=== PATIENT | male | born 1970 | race African-American/Black ===

== ENCOUNTER 2025-09-02 16:00 | Emergency (ER) | payer OTHER ==
[~2025-09-02] VITALS: Ht 177.8 cm; Wt 95.0 kg
[2025-09-02 16:15] VITALS: TEMP 37.1; O2SAT 100
[2025-09-02 16:53] LABS: BASOPHILS % 0.5 % (0.0-2.0); EOSINOPHILS % 0.8 % (0.0-5.0); HEMATOCRIT. 41.1 % (42.0-52.0); HEMOGLOBIN. 13.6 g/dL (14.0-18.0); LYMPHOCYTES % 28.0 % (20.0-50.0); MEAN PLATELET VOLUME 7.8 fl (7.4-10.4); MONOCYTES % 9.1 % (2.0-8.0); NEUTROPHILS % 61.6 % (40.0-76.0); PLATELET 337 x1000/uL (130-400); RED BLOOD CELL COUNT 4.86 mill/uL (4.7-6.1); RED CELL DISTRIBUTION WIDTH 12.9 % (11.6-14.6)
[2025-09-02 17:23] LABS: CREATININE 1.1 mg/dL (0.6-1.3); UREA NITROGEN BLOOD 10 mg/dL (9-23)
[2025-09-02 17:24] LABS: PROTEIN TOTAL 7.2 g/dL (6.0-8.3)
[2025-09-02 17:25] LABS: ASPARTATE AMINOTRANSFERASE 24 IU/L (<34); BILIRUBIN DIRECT 0.2 mg/dL (<=3.0); BILIRUBIN TOTAL 0.7 mg/dL (0.1-1.0)
[2025-09-02] MEDS: ONDANSETRON 4MG ODT PO ONE (18:25)
[2025-09-02] MEDS: FAMOTIDINE 20MG TABLET PO ONE (18:25)
[2025-09-02] MEDS: MAGNESIUM/ALUMINUM HYDROXIDE/SIMETHICONE 30ML UDC PO ONE (18:25)
[2025-09-02] MEDS: KETOROLAC 30MG/ML VIAL IM ONE (18:26)
[2025-09-02] MEDS ORDERED: MAG-55 MT (19:11)
[2025-09-02] MEDS ORDERED: FAMO-135 MT (19:11)
[2025-09-02 19:27] VITALS: BP 146/99; PULSE 84; RESP 16; O2SAT 97
== END 2025-09-02 19:30 | disposition home or self-care (01) ==
LOC: ER 16:16
DX: R12 Heartburn (principal); Z87.11 Personal history of peptic ulcer disease
CPT/HCPCS: 99285; 76705; 80076; 80048; 83690; 85025; 36415; 96372; J1885; Q0162

== ENCOUNTER 2025-09-05 18:14 | Inpatient (IN) | payer OTHER ==
[~2025-09-05] VITALS: Ht 177.8 cm; Wt 95.3 kg
[~2025-09-05 18:14] MED LIST: FAMO-135 MT; MAG-55 MT
[2025-09-05 18:16] VITALS: O2SAT 100
[2025-09-05 18:38] LABS: BASOPHILS % 0.8 % (0.0-2.0); EOSINOPHILS % 0.1 % (0.0-5.0); HEMATOCRIT. 47.5 % (42.0-52.0); HEMOGLOBIN. 15.9 g/dL (14.0-18.0); LYMPHOCYTES % 23.1 % (20.0-50.0); MEAN PLATELET VOLUME 8.0 fl (7.4-10.4); MONOCYTES % 7.0 % (2.0-8.0); NEUTROPHILS % 69.0 % (40.0-76.0); PLATELET 462 x1000/uL (130-400); RED BLOOD CELL COUNT 5.70 mill/uL (4.7-6.1); RED CELL DISTRIBUTION WIDTH 13.1 % (11.6-14.6)
[2025-09-05 18:53] LABS: CREATININE 1.1 mg/dL (0.6-1.3)
[2025-09-05 18:54] LABS: PROTEIN TOTAL 8.5 g/dL (6.0-8.3); UREA NITROGEN BLOOD 14 mg/dL (9-23)
[2025-09-05 18:55] LABS: ASPARTATE AMINOTRANSFERASE 20 IU/L (<34); TROPONIN I HIGH SENSITIVITY 9 ng/L (3.0-53)
[2025-09-05 18:56] LABS: BILIRUBIN DIRECT 0.3 mg/dL (<=3.0); BILIRUBIN TOTAL 1.0 mg/dL (0.1-1.0)
[2025-09-05 20:01] LABS: GLUCOSE URINE NEGATIVE (NEGATIVE); KETONES URINE 4+ (NEGATIVE); LEUKOCYTE ESTERASE URINE TRACE (NEGATIVE); NITRITE URINE NEGATIVE (NEGATIVE); OCCULT BLOOD URINE NEGATIVE (NEGATIVE); PH URINE 6.0 (4.5-8.0); PROTEIN URINE 1+ (NEGATIVE); SPECIFIC GRAVITY URINE 1.034 (1.005-1.030); UROBILINOGEN URINE 1.0 E.U./dL (0.2-1.0)
[2025-09-05 20:12] LABS: CLARITY URINE SL HAZY (CLEAR); COLOR URINE YELLOW (YELLOW)
[2025-09-05 20:14] LABS: RBC URINE 0-2 /hpf (0-2)
[2025-09-05 20:15] LABS: BACTERIA URINE TRACE; SQUAMOUS EPITHELIAL CELL URINE 1+ /lpf (RARE/1+)
[2025-09-05] MEDS: MAGNESIUM/ALUMINUM HYDROXIDE/SIMETHICONE 30ML UDC PO ONE (20:20)
[2025-09-05] MEDS: FAMOTIDINE 20MG TABLET PO SCH (20:20)
[2025-09-05] MEDS: ACETAMINOPHEN 325MG TABLET PO ONE (20:21)
[2025-09-05] MEDS: PANTOPRAZOLE SODIUM 40 MG/VIAL IV ONE (20:21)
[2025-09-06] MEDS ORDERED: MAGNESIUM/ALUMINUM HYDROXIDE/SIMETHICONE 30ML UDC PO PRN (01:15)
[2025-09-06] MEDS ORDERED: DOCUSATE SODIUM 100MG CAPSULE PO PRN (01:15)
[2025-09-06] MEDS ORDERED: ACETAMINOPHEN 325MG TABLET PO PRN (01:15)
[2025-09-06] MEDS ORDERED: GUAIFENESIN 200MG/10ML SUGAR FREE UDC PO PRN (01:15)
[2025-09-06] MEDS ORDERED: IPRATROPIUM/ALBUTEROL 0.5-3(2.5)MG/3ML NEB HHN PRN (01:15)
[2025-09-06 02:30] VITALS: BP 143/57; PULSE 81; RESP 19; TEMP 36.5292
[2025-09-06] MEDS: SODIUM CHLORIDE 0.9% 1,000 ML IV SCH (03:00)
[2025-09-06] MEDS: ONDANSETRON HCL 4MG/2ML INJ IV PRN (03:38)
[2025-09-06] MEDS: ACETAMINOPHEN 325MG TABLET PO PRN (03:39)
[2025-09-06] MEDS: METRONIDAZOLE 500 MG PREMIX 100 ML IV SCH (06:11)
[2025-09-06] MEDS: CEFTRIAXONE 1GM/50ML 50 ML IV SCH (06:12)
[2025-09-06] MEDS ORDERED: AZITHROMYCIN 500MG/250ML 250 ML IV SCH (07:15)
[2025-09-06 08:00] VITALS: BP 134/95; PULSE 80; RESP 18; TEMP 36.4; O2SAT 100
[2025-09-06] MEDS: AZITHROMYCIN 500 MG TABLET PO SCH (08:54)
[2025-09-06] MEDS: PANTOPRAZOLE SODIUM 40 MG/VIAL IV SCH ×2 (08:54→10:00)
[2025-09-06 08:59] LABS: BASOPHILS % 0.3 % (0.0-2.0); EOSINOPHILS % 0.2 % (0.0-5.0); HEMATOCRIT. 43.5 % (42.0-52.0); HEMOGLOBIN. 14.5 g/dL (14.0-18.0); LYMPHOCYTES % 17.9 % (20.0-50.0); MEAN PLATELET VOLUME 8.3 fl (7.4-10.4); MONOCYTES % 8.2 % (2.0-8.0); NEUTROPHILS % 73.4 % (40.0-76.0); PLATELET 364 x1000/uL (130-400); RED BLOOD CELL COUNT 5.15 mill/uL (4.7-6.1); RED CELL DISTRIBUTION WIDTH 13.0 % (11.6-14.6)
[2025-09-06 09:08] LABS: CREATININE 1.0 mg/dL (0.6-1.3); TRIGLYCERIDE 111 mg/dL (0-150)
[2025-09-06 09:09] LABS: LDL CHOLESTEROL 142 mg/dL (5-100); UREA NITROGEN BLOOD 10 mg/dL (9-23)
[2025-09-06 09:26] LABS: ETHANOL BLOOD < 10 mg/dL (<10)
[2025-09-06 09:28] LABS: PHOSPHORUS 3.5 mg/dL (2.5-4.9)
[2025-09-06] MEDS: DEXT 5%/LACTATED RINGERS 1,000 ML IV ONE (09:45)
[2025-09-06] MEDS ORDERED: CEFTRIAXONE 2GM/50ML 50 ML IV SCH (11:00)
[2025-09-06] MEDS: POTASSIUM CHLORIDE 20MEQ TABLET SR PO NR (11:10)
[2025-09-06] MEDS: KCL 20MEQ/100ML PREMIX 100 ML IV SCH (11:12)
[2025-09-06 12:00] VITALS: BP 128/75; PULSE 78; RESP 18; TEMP 35.8; O2SAT 98
[2025-09-06] MEDS: CEFTRIAXONE 1GM/50ML 50ML IV NR (12:29)
[2025-09-06] MEDS: SUCRALFATE 1G TABLET PO SCH (12:29)
[2025-09-06] MEDS: KETOROLAC 15MG/ML VIAL IV PRN (12:30)
[2025-09-06 16:00] VITALS: BP 134/68; PULSE 78; RESP 18; TEMP 35.8; O2SAT 98
[2025-09-06 20:00] VITALS: BP 120/80; PULSE 75; RESP 20; TEMP 36.3; O2SAT 99
[2025-09-07] VITALS: BP 161/110; PULSE 78; RESP 20; TEMP 36.6; O2SAT 99
[2025-09-07] MEDS: CLONIDINE 0.1MG TABLET PO PRN (00:09)
[2025-09-07] MEDS: CEFTRIAXONE 2GM/50ML 50 ML IV SCH (05:02)
[2025-09-07 08:00] VITALS: BP 134/95; PULSE 80; RESP 18; TEMP 35.8; O2SAT 100
[2025-09-07 12:00] VITALS: BP 128/84; PULSE 78; RESP 18; TEMP 35.9; O2SAT 100
[2025-09-07 12:07] LABS: BASOPHILS % 0.6 % (0.0-2.0); EOSINOPHILS % 1.4 % (0.0-5.0); HEMATOCRIT. 41.7 % (42.0-52.0); HEMOGLOBIN. 14.0 g/dL (14.0-18.0); LYMPHOCYTES % 27.7 % (20.0-50.0); MEAN PLATELET VOLUME 8.1 fl (7.4-10.4); MONOCYTES % 11.6 % (2.0-8.0); NEUTROPHILS % 58.7 % (40.0-76.0); PLATELET 328 x1000/uL (130-400); RED BLOOD CELL COUNT 4.97 mill/uL (4.7-6.1); RED CELL DISTRIBUTION WIDTH 12.9 % (11.6-14.6)
[2025-09-07 12:21] LABS: CREATININE 1.0 mg/dL (0.6-1.3); UREA NITROGEN BLOOD 8 mg/dL (9-23)
[2025-09-07] MEDS: POTASSIUM CHLORIDE 20MEQ TABLET SR PO SCH (12:50)
[2025-09-07 13:25] VITALS: BP 128/84; PULSE 78; RESP 18; TEMP 97.6
== END 2025-09-07 14:00 | disposition home or self-care (01) | DRG 392 ==
LOC: ER 18:14 → 6EST 09-06 00:37 → EDBEDREQTM 09-06 00:42 → EDBEDREQ 09-06 00:42 → EDBEDREQDT 09-06 00:42
PROVIDERS: ADMIT Hospitalist; ATTEND Hospitalist
DX: K52.9 Noninfective gastroenteritis and colitis, unspecified (principal); D18.03 Hemangioma of intra-abdominal structures; R65.10 Systemic inflammatory response syndrome (SIRS) of non-infectious origin without acute organ dysfunction; K21.9 Gastro-esophageal reflux disease without esophagitis; E78.5 Hyperlipidemia, unspecified; R73.9 Hyperglycemia, unspecified; E87.6 Hypokalemia; F17.210 Nicotine dependence, cigarettes, uncomplicated; Z79.899 Other long term (current) drug therapy
CPT/HCPCS: 36415; 80048; 80061; 80076; 80320; 81003; 83605; 83735; 84100; 84145; 84443; 84484; 85025; 93005; 99285; J0696; J1885; J2405; J2470; J3480; J3490; J7030; G0480